=== PATIENT | male | born 1980 ===

== ENCOUNTER 2017-10-31 17:01 | Emergency (ER) | payer SELFPAY ==
--- NOTE | 2017-10-31 17:41 | ED PDOC ---
HPI: Psych/Substance Abuse Time Seen by Provider: 10/31/17 17:34 Chief Complaint (Nursing): Substance Abuse Chief Complaint (Provider): Bizarre behvior Additional Complaint(s): Pt BIBA for bizarre behavior. Pt denies suicidal or homicidal ideation. Admits to marijuana use. Past Medical History Reviewed: Nursing Documentation, Vital Signs Vital Signs: Last Vital Signs Temp 98.5 F 10/31/17 17:05 Pulse 101 H 10/31/17 17:05 Resp 16 10/31/17 17:05 BP 150/102 H 10/31/17 17:05 Pulse Ox 98 10/31/17 17:05 - Medical History PMH: Depression Denies: Diabetes, Hepatitis, HIV, HTN, Seizures, Sexually Transmitted Disease - Family History Family History: States: Unknown Family Hx - Social History Drugs: Cannabis - Home Medications Home Medications: Ambulatory Orders Medication Instructions Recorded Benztropine [Cogentin] 2 mg PO HS PRN #30 tab 06/10/17 Sertraline [Zoloft] 50 mg PO DAILY #30 tab 06/10/17 traZODone [Desyrel] 50 mg PO HS PRN #30 tab 06/10/17 - Allergies Allergies/Adverse Reactions: Allergies Allergy/AdvReac Type Severity Reaction Status Date / Time No Known Allergies Allergy Verified 09/26/16 00:32 Review of Systems ROS Statement: Except As Marked, All Systems Reviewed And Found Negative Physical Exam - Reviewed Nursing Documentation Reviewed: Yes Vital Signs Reviewed: Yes - Physical Exam Appears: Positive for: Well, No Acute Distress (Calm, cooperative) Skin: Positive for: Normal Color, Warm, Dry Cardiovascular/Chest: Positive for: Regular Rate, Rhythm Respiratory: Positive for: Normal Breath Sounds Neurologic/Psych: Positive for: Alert, learning and development intern II-XII, Oriented. Negative for: Motor/Sensory Deficits, Facial Droop - Laboratory Results Result Diagrams: 11/01/17 00:09 11/01/17 00:09 - ECG O2 Sat by Pulse Oximetry: 98 Medical Decision Making Medical Decision Makin yo male BIBA for bizarre behavior. - EtOH leve - UDS - Crisis evaluation Disposition - Clinical Impression Clinical Impression: Substance abuse - Disposition Disposition: Transfer of Care Disposition Time: 00:00 Condition: STABLE Instructions: Drug Abuse Treatment Forms: [employer] (Croatian) Patient Signed Over To: Mars Coon
[2017-11-01 00:08] LABS: BARBITURATES, UR NEGATIVE (NEGATIVE); BENZODIAZEPINES, UR NEGATIVE (NEGATIVE); OPIATES, UR NEGATIVE (NEGATIVE); PHENCYCLIDINE, UR NEGATIVE (NEGATIVE)
--- NOTE | 2017-11-01 00:09 | ED PDOC ---
- Laboratory Results Result Diagrams: 11/01/17 00:09 11/01/17 00:09 - ECG O2 Sat by Pulse Oximetry: 98 (RA) Pulse Ox Interpretation: Normal Medical Decision Making Medical Decision Making: Time: --00:00 Plan: --Crisis and Reevaluation Reassess --Patient signed out to the provider by Dr. Grey pending crisis and reevaluation. 01:56 Patient was evaluated by crisis and is stable for discharge. diagnosis: substance abuse Scribe Attestation: Documented by Gary Watson acting as a scribe for Mars Coon MD. Provider Attestation: All medical record entries made by the Scribe were at my direction and personally dictated by me. I have reviewed the chart and agree that the record accurately reflects my personal performance of the history, physical exam, medical decision making, and the department course for this patient. I have also personally directed, reviewed, and agree with the discharge instructions and disposition. Disposition - Clinical Impression Clinical Impression: Substance abuse - POA Present On Arrival: None - Disposition Disposition: Routine/Home Disposition Time: 01:56 Condition: STABLE Instructions: Drug Abuse Treatment Forms: [email or web address] (Tajik)
[2017-11-01 00:12] LABS: BASO % 0.3 % (0.0-2.0); EOS # 0.4 K/uL (0.0-0.7); EOS % 5.7 % (0.0-4.0); HEMOGLOBIN 14.1 g/dL (12.0-18.0); LYMPH # 1.1 K/uL (1.0-4.3); LYMPH % 17.5 % (20.0-40.0); MEAN CELL VOLUME 89.7 fl (80.0-94.0); MEAN CORPUSCULAR HEMOGLOBIN 30.4 pg (27.0-31.0); MEAN CORPUSCULAR HGB CONC 33.9 g/dL (33.0-37.0); MEAN PLATELET VOLUME 6.9 fl (7.2-11.7); MONO # 0.7 K/uL (0.0-0.8); MONO % 11.4 % (0.0-10.0); NEUT # 4.1 K/uL (1.8-7.0); NEUT % 65.1 % (50.0-75.0); NRBC % 0.1 % (0.0-0.0); RBC 4.66 Mil/uL (4.40-5.90); RED CELL DISTRIBUTION WIDTH 13.7 % (11.5-14.5); WHITE BLOOD COUNT 6.3 K/uL (4.8-10.8)
[2017-11-01 00:20] LABS: ALBUMIN 3.9 g/dL (3.5-5.0); ALT/SGPT 81 U/L (21-72); AST/SGOT 55 U/L (17-59); BLOOD UREA NITROGEN 9 mg/dl (9-20); CALCIUM 9.2 mg/dL (8.4-10.2); GFR AFRICAN-AMERICAN > 60; GFR NON-AFRICAN AMERICAN > 60
[2017-11-01 01:59] VITALS: O2SAT 98
[2017-11-01 07:11] VITALS: BP 128/68; PULSE 73; RESP 16; TEMP 98
== END 2017-11-01 06:40 | disposition home or self-care (01) ==
LOC: H.ER 17:01
DX: F12.90 Cannabis use, unspecified, uncomplicated (principal); F32.9 Major depressive disorder, single episode, unspecified
CPT/HCPCS: 80053; 85025; 96372; 99285; G0480; J1630; J2060